=== PATIENT | male | born 1940 | race Caucasian/White ===

== ENCOUNTER 2019-09-27 16:19 | Emergency (ER) | payer OTHER, MEDICARE ==
[~2019-09-27] VITALS: Ht 175.3 cm; Wt 70.8 kg
[2019-09-27] MEDS ORDERED: ASA81BEC PO (16:29)
[2019-09-27] MEDS ORDERED: LIPITOR 40 MG T40 M1 PO (16:29)
[2019-09-27] MEDS ORDERED: VITAMIN D3400 UNI2 PO (16:29)
[2019-09-27] MEDS ORDERED: CALCIUM500 MG PO (16:30)
[2019-09-27] MEDS ORDERED: VALIUM2 MG PO (18:18)
[2019-09-27] MEDS ORDERED: ONDANSETRON ODT8 MG PO (18:28)
[2019-09-27 18:40] VITALS: BP 127/55
--- NOTE | 2019-09-28 19:38 | EKG ---
[place] [address] [facility] [facility] [place] [employer] [place] [address] ELECTROCARDIOGRAM REPORT Name: CLEMENTINA MORRISSEY Room #: DEP [facility]#: [id number] Admission: 09/27/19 Attend Phys: Discharge: 09/27/19 Date of : 36 Report #: [id number] THIS REPORT FOR: //name// [facility] ED Test Date: 2019-09-27 Test Time: 17:17:27 Pat Name: CLEMENTINA MORRISSEY Department: Room: Gender: M [employer]: SERG : 1940 Requested By: Magdi Gibson Order Number: [id number] MD: Star Rosario Measurements Intervals [place] Rate: 50 P: -50 [place]: 167 QRS: -31 QRSD: 102 T: 31 QT: 454 QTc: 414 Interpretive Statements Sinus bradycardia Left axis deviation Abnormal R-wave progression, early transition Borderline T wave abnormalities Compared to ECG 01/02/2009 10:54:24 No significant change was found Electronically Signed On 09-28-2019 19:37:52 SQL DAT[employer]ASE DEVELOPER by Star Rosario [email or web address] <ELECTRONICALLY SIGNED> By: Star Rosario MD, [facility] 09/28/191936 16 16 Star Rosario MD, [facility] /EPI
== END 2019-09-27 18:41 | disposition home or self-care (01) ==
LOC: ER 16:19
DX: H81.12 Benign paroxysmal vertigo, left ear (principal)